=== PATIENT | male | born 1955 | race Asian ===

== ENCOUNTER 2019-04-30 07:52 | Observation (INO) | payer OTHER ==
[2019-04-29 13:31] VITALS: Ht 160 cm; Wt 77.2 kg
[2019-04-30] VITALS (24 sets, daily range): BP systolic 121–151; BP diastolic 68–80; PULSE 70–100; RESP 14–18
[~2019-04-30] VITALS: Ht 160 cm; Wt 77.2 kg
[~2019-04-30 07:52] MED LIST: CEFAZOLIN 2 GM/50 ML (PMX) 50 ML IVPB ONE; SOD CHLORIDE 0.9% 1,000 ML IV SCH
[2019-04-30] MEDS ORDERED: LOSA100T15 PO (08:40)
[2019-04-30] MEDS ORDERED: ATOR10TA65 PO (08:41)
[2019-04-30] MEDS ORDERED: METO-319 PO (08:41)
--- NOTE | 2019-04-30 10:35 | PREAC ---
Date/Time of Note Date/Time of Note DATE: 04/30/19 TIME: 10:34 Anesthesia Eval and Record Evaluation Time Pre-Procedure Interview DATE: 04/30/19 TIME: 10:34 Age 63 Sex male NPO: 8 hrs Preoperative diagnosis gallstones Planned procedure laproscopic cholecystectomy Past Medical History Past Medical History: Includes Cardio: HTN, Dyslipidemia Surgery & Anesthesia Issues No known issue Meds Anticoagulation: No Beta Tong within 24 hr: No Reason Beta Tong not given: Pt. not on B-Tong Reported Medications Atorvastatin Calcium (Atorvastatin Calcium) 10 Mg Tablet, 10 MG PO QHS, #30 TAB 04/30/19 Metoprolol Succinate* (Toprol XL*) 50 Mg Tab.er.24h, 50 MG PO DAILY, #30 TAB 04/30/19 Losartan Potassium* (Losartan Potassium*) 100 Mg Tablet, 100 MG PO DAILY, TAB 04/30/19 Current Medications Sodium Chloride 1,000 ml @ 75 mls/hr [id number] IV Last administered on 04/30/19at 06:00; Admin Dose 75 MLS/HR; Start 04/30/19 at 06:00; Stop 04/30/19 at 19:19 Meds reviewed: Yes Allergies Coded Allergies: No Known Allergy (Unverified , 04/30/19) Allergies Reviewed: Yes Labs/Studies Labs Reviewed: Reviewed by anesthesiologist test: N/A Pre-procedure Exam Last vitals Vital Signs Date Temp Pulse Resp B/P (MAP) Pulse Ox O2 O2 Flow FiO2 Time Delivery Rate 04/30/19 98.1 70 16 151/79 99 Room Air 08:42 (103) Airway: Adequate mouth opening, Adequate thyromental dist Mallampati: Mallampati III Teeth: Normal Lung: Normal Heart: Normal ASA Physical Status ASA physical status: 2 Emergency: None Pre-operative Attestations Prior to commencing anesthesia and surgery, the patient was re-evaluated, there was verification of: *The patient's identity *The results of appropriate recent lab work and preoperative vital signs *The above evaluation not changing prior to induction *Anesthetic plan, risk benefits, alternative and complications discussed with patient/family; questions answered; patient/family understands, accepts and wishes to proceed. LINDSAY GREENE DO Apr 30, 2019 10:35
[2019-04-30] MEDS ORDERED: LIDOCAINE 1% (MDV) 20 ML INJ ONE (10:40)
[2019-04-30] MEDS ORDERED: PROPOFOL 20 ML ONE (10:40)
[2019-04-30] MEDS ORDERED: ROCURONIUM 50 MG INJ ONE (10:40)
[2019-04-30] MEDS ORDERED: MIDAZOLAM 1 MG/ML 2 ML INJ ONE (10:40)
[2019-04-30] MEDS ORDERED: ROPIVACAINE 0.5 % 30 ML VIAL ONE (10:43)
[2019-04-30] MEDS ORDERED: DEXAMETHASONE 4 MG/ML 5 ML INJ ONE (10:59)
[2019-04-30] MEDS ORDERED: ONDANSETRON 4 MG INJ ONE (10:59)
[2019-04-30] MEDS ORDERED: CEFAZOLIN 1 GM INJ ONE (10:59)
[2019-04-30] MEDS ORDERED: EPHEDrine 25 MG/5 ML SYG ONE (11:25)
[2019-04-30] MEDS ORDERED: SUGAMMADEX SODIUM 200 MG/2 ML VIAL IV ONE ×2 (11:55→11:57)
--- NOTE | 2019-04-30 12:04 | SIPON ---
Date/Time of Note Date/Time of Note DATE: 04/30/19 TIME: 12:03 Operative Report Preoperative Diagnosis Symptomatic cholelithiasis Postoperative Diagnosis Chronic cholecystitis Operation/Procedure Performed Laparoscopic cholecystectomy Surgeon see signature line administrative support assistant Dr Streeter Anesthesia: general Estimated blood loss: 10 - 50 ml's Transfusion Required none Specimen Gallbladder Grafts/Implants none Complications none JORDAN DUNBAR MD Apr 30, 2019 12:04
--- NOTE | 2019-04-30 12:26 | PAC ---
Date/Time of Note Date/Time of Note DATE: 04/30/19 TIME: 12:25 Post-Anesthesia Notes Post-Anesthesia Note Last documented vital signs Vital Signs Date Temp Pulse Resp B/P (MAP) Pulse Ox O2 O2 Flow FiO2 Time Delivery Rate 04/30/19 98 69 18 150/86 99 Room Air 1225 Activity: WNL Respiratory function: WNL Cardiovascular function: WNL Mental status: Baseline Pain reasonably controlled: Yes Hydration appropriate: Yes Nausea/Vomiting absent: Yes LINDSAY GREENE DO Apr 30, 2019 12:26
--- NOTE | 2019-04-30 12:27 | OPR ---
DATE OF OPERATION: 04/30/2019 PREOPERATIVE DIAGNOSIS: Symptomatic cholelithiasis. POSTOPERATIVE DIAGNOSIS: Chronic cholecystitis. PROCEDURE: Laparoscopic cholecystectomy. ANESTHESIA: General. ANESTHESIOLOGIST: Dr. Viera. SURGEON: Dr. Carranza. HOSE STRIPPER: Dr. Streeter. INDICATIONS FOR PROCEDURE: The patient is a 63-year-old male who presented with previous episodes of severe right upper quadrant pain. He was seen in a local emergency room and found to have evidence of a thickened gallbladder wall and cholelithiasis. He was then referred for surgical consultation. He was counseled as to the benefit of cholecystectomy. He consented and was scheduled for surgery. DESCRIPTION OF PROCEDURE: The patient was brought to the operating theater, placed under general ane sthesia. The abdomen was prepped and draped in the usual sterile fashion. An approximately 2 cm inc ision was made just above the umbilicus in the midline. Subcutaneous tissue was dissected with caute ry down to the anterior rectus sheath; 0 Vicryl stay sutures were placed on either side of the linea alba. The linea alba was incised. The abdomen was entered without difficulty. A Jovanna trocar was then placed in standard fashion. The abdomen was insufflated to a pressure of approximately 14 mmHg with carbon dioxide. The laparoscope was introduced into the abdomen and attention was directed to the right upper quadrant, where a thick-walled, distended gallbladder was identified. Three accessor y ports were then placed under direct vision in the standard fashion. Through the lateral port sites , the gallbladder was grasped at the fundus and the neck and retracted cephalad and lateral. The per itoneum overlying the gallbladder was then incised, both medially and laterally to facilitate mobiliz ation of the triangle of Calot. With meticulous dissection, the cystic duct was isolated. It was do ubly clipped and then transected at the neck of the gallbladder with the endovascular KRISTINE stapler. S ubsequently, the cystic artery was identified, triply clipped and transected. The gallbladder was th en dissected out of the gallbladder fossa using cautery. Prior to final transection, irrigation and inspection took place. Minimal bleeding was controlled with cautery. The gallbladder was then trans ected. The laparoscope was moved to the 12 mm subcostal port site, and the gallbladder was retrieved from the abdomen through the umbilical port site in a standard fashion. Jovanna trocar was placed ba ck into the abdomen. The abdomen was reinsufflated. The laparoscope was moved back to the umbilical port site. Final irrigation and inspection took place. There was no evidence of bleeding. The 3 a ccessory ports were then removed under direct vision. Again, there was no evidence of bleeding. Fin ally, the umbilical port was removed. The midline umbilical fascia was then reapproximated with 0 Pr olene sutures in figure-of-8 fashion. All wounds were irrigated with Betadine and skin incisions wer e reapproximated with skin christian. The patient tolerated the procedure well. The estimated blood l oss was approximately 50 mL. There were no complications, and the patient was transported in stable condition to the recovery room. Dictated By: JORDAN OSORIO/GISSELLE Conf#: [id number] DID#: [id number]
[2019-04-30] MEDS ORDERED: hydrALAzine 20 MG INJ IV PRN (12:30)
[2019-04-30] MEDS ORDERED: LABETALOL HCL 20MG INJ IV PRN (12:30)
[2019-04-30] MEDS ORDERED: morphine 2 MG INJ IV PRN (12:30)
[2019-04-30] MEDS ORDERED: ONDANSETRON 4 MG INJ IV PRN ×2 (12:30)
[2019-04-30] MEDS ORDERED: HYDROmorphONE 1 MG/5 ML IV SYRINGE IV PRN ×3 (12:30)
[2019-04-30] MEDS ORDERED: OXYCODONE/ACETAMINOPHEN (5/325) TAB PO PRN ×2 (12:30)
[2019-04-30] MEDS ORDERED: ACETAMINOPHEN 1000MG/100ML IV 100 ML IVPB PRN (12:30)
[2019-04-30] MEDS: D5W-0.45 NACL + KCL 20 MEQ 1,000 ML IV SCH ×2 (13:36→21:52)
[2019-04-30] MEDS: HYDROCODONE/APAP (5/325) TAB PO PRN (21:53)
[2019-05-01 01:59] VITALS: BP 121/64; PULSE 81; RESP 18
--- NOTE | 2019-05-01 05:32 | HP ---
DATE OF ADMISSION: 04/30/2019 HISTORY OF PRESENT ILLNESS: The patient is a 63-year-old gentleman with history of hypertension, was seen by Dr. Dunbar as an outpatient due to symptomatic gallstone. The patient was brought in to hospital today and underwent laparoscopic cholecystectomy. The patient postoperatively was breathing comfortably, denies any chest pain or shortness of breath. No reported vomiting. No reported resting leg pain. No reported weakness in any extremities. REVIEW OF SYSTEMS: Other than postoperative pain, rest of the systems is unremarkable. PAST MEDICAL HISTORY: As stated above. In addition, the patient also has history of gout. FAMILY HISTORY: Mother had hypertension. SOCIAL HISTORY: Ex-smoker. No history of alcohol abuse. PHYSICAL EXAMINATION: GENERAL: The patient is awake, alert. VITAL SIGNS: Blood pressure 120/76, pulse 72, respirations 17, temperature 97.8, O2 saturation 98%. HEENT: Atraumatic, normocephalic. Conjunctivae normal. NECK: Supple, no mass, no thyromegaly. CHEST: Fairly clear. CARDIOVASCULAR: S1, S2 normal, no murmur. ABDOMEN: The patient is status post laparoscopic cholecystectomy. EXTREMITIES: No edema. Pedal pulses palpable. SKIN: Without acute rash. NEUROLOGIC: The patient is awake, alert with no gross focal deficit. LABORATORY DATA: WBC 9.1, hemoglobin 14.7, platelet 214. Sodium 144, potassium 4.2, BUN 22, creatinine 1.6, glucose 94. EKG: Sinus rhythm. Chest x-ray unremarkable. IMPRESSION: 1. Symptomatic gallstones. 2. History of hypertension. 3. Chronic kidney disease, possible stage III. 4. Dyslipidemia. PLAN: The patient admitted on medical floor. The patient will be started on clear liquid diet as tolerated. Since the patient's blood pressure is below normal, we will hold off on antihypertensive. We will also hold off on Lipitor. For pain, the patient will be given IV Tylenol and morphine. We will use SCDs for DVT prophylaxis. Further recommendation will depend on patient's hospital course. Dictated By: WADE WHITMORE/NTS Conf#: [id number] DID#: [id number] CC: JORDAN DUNBAR MD;*EndCC* MTDD
[2019-05-01] MEDS: D5W-0.45 NACL + KCL 20 MEQ 1,000 ML IV SCH (05:50)
--- NOTE | 2019-05-01 06:13 | PN ---
Date/Time of Note Date/Time of Note DATE: 05/01/19 TIME: 06:11 Assessment/Plan VTE Prophylaxis Risk score (from Nsg)>0 risk: 6 SCD applied (from Nsg): Yes Lines/Catheters IV Catheter Type (from Nrsg): Peripheral IV Urinary Cath still in place: No Assessment/Plan Assessment/Plan 1. Symptomatic gallstone. 2. History of hypertension. 3. Chronic kidney disease, possible stage III. 4. Dyslipidemia. -clear liquid diet as tolerated. -Since the patient's blood pressure is below normal, we will hold off on antihypertensive. We will also hold off on Lipitor. - IV Tylenol and morphine. -SCDs for DVT prophylaxis. Further recommendation will depend on patient's hospital course. Subjective 24 Hr Interval Summary Free Text/Dictation STABLE Exam/Review of Systems Exam Vitals Vital Signs Date Temp Pulse Resp B/P (MAP) Pulse Ox O2 O2 Flow FiO2 Time Delivery Rate 05/01/19 97.9 81 18 121/64 97 01:59 (83) 04/30/19 Room Air 16:30 Intake and Output 04/30/19 04/30/19 05/01/19 1515:00 23:00 07:00 IntakeIntake Total 1150 ml 1240 ml 1000 ml OutputOutput Total 220 ml BalanceBalance 930 ml 1240 ml 1000 ml Medications Medication Current Medications Ondansetron HCl (Zofran Inj) 4 mg Q6H PRN IV NAUSEA AND/OR VOMITING; Start 04/30/19 at 12:30 Morphine Sulfate (morphine) 2 mg Q1H PRN IV PAIN; Start 04/30/19 at 12:30 Acetaminophen/ Hydrocodone Bitart (Coldiron (5/325)) 1 tab Q6H PRN PO PAIN Last administered on 04/30/19at 21:53; Admin Dose 1 TAB; Start 04/30/19 at 12:30 Acetaminophen 100 ml @ 400 mls/hr Q6H PRN IVPB PAIN; Start 04/30/19 at 12:30; Stop 05/01/19 at 12:29 Potassium Chloride/Dextrose/ Sod Cl 1,000 ml @ 125 mls/hr Q8H IV Last administered on 05/01/19at 05:50; Admin Dose 125 MLS/HR; Start 04/30/19 at 12:04 CIRA CABA May 01, 2019 06:13
[2019-05-01 08:38] VITALS: BP 156/77; PULSE 78; RESP 18
[2019-05-01] MEDS: HYDROCODONE/APAP (5/325) TAB PO PRN (10:14)
[2019-05-01 13:59] VITALS: BP 145/78; PULSE 61; RESP 18
--- NOTE | 2019-05-01 15:20 | PDOCDIS ---
Discharge Instructions CONDITION [id number] Patient Condition: [id number] Good HOME CARE INSTRUCTIONS: [id number] Diet Instructions: [id number] Low Fat /Cholesterol ACTIVITY: [id number] Activity Restrictions: Vekck9m Slowly Increase Activity Rest between Activity Avoid heavy lifting Do not Drive Avoid Heavy Housework [id number] Bathing Restrictions: [id number] Shower FOLLOW UP/APPOINTMENTS Follow-up Plan Dr. Carranza next week PCP in 1-2 weeks WADE SIM MD May 01, 2019 15:19
--- NOTE | 2019-05-01 20:01 | PN ---
DATE: 05/01/2019 Postop day #1, status post laparoscopic cholecystectomy. SUBJECTIVE: No complaint, has tolerated diet, has been walking around. Minimal abdominal pain. OBJECTIVE: GENERAL: Awake, alert and oriented. VITAL SIGNS: Temperature maximum 98, , respirations 18, blood pressure 156/77, saturation 98 % on room air. HEART: Regular. LUNGS: Clear. ABDOMEN: Soft. Bowel sounds normal. EXTREMITIES: Legs have no calf tenderness. ASSESSMENT AND PLAN: This is a 63-year-old man who has symptomatic gallstone and underwent a laparoscopic cholecystectomy. Today, the patient is currently stable; therefore, he can be discharged home to be followed by Dr. Carranza. He is to call Dr. Carranza' office and make an appointment for followup. Dictated By: BARRIE BURCIAGA MD PS/NTS Conf#: [id number] DID#: [id number] MTDD
== END 2019-05-01 16:25 | disposition home or self-care (01) ==
LOC: SDS 07:52 → REC 12:04 → INTOOBSV 12:04 → MS1 13:26
PROVIDERS: ADMIT Surgery Surgical Oncology; ATTEND Surgery Surgical Oncology
DX: K80.10 Calculus of gallbladder with chronic cholecystitis without obstruction (principal); I12.9 Hypertensive chronic kidney disease with stage 1 through stage 4 chronic kidney disease, or unspecified chronic kidney disease; N18.3 Chronic kidney disease, stage 3 (moderate); E78.5 Hyperlipidemia, unspecified; M10.9 Gout, unspecified; Z87.891 Personal history of nicotine dependence
CPT/HCPCS: 47562; 88304; J0690; J1100; J2250; J2405; J2795; J3010; J3480; Z7500; Z7512; Z7610; G0378